=== PATIENT | female | born 1940 | race Caucasian/White ===

== ENCOUNTER → 2017-07-18 | Outpatient (CLI) | payer MEDICARE, OTHER ==
[~2017-07-18] MED LIST: ALDACTONE100 MG PO; ASPIRIN 81MG TA81 MG PO; BACTROBAN2% TP; BYSTOLIC10 MG PO; CALCIUM ACETAT667 MG PO; COZAAR 50 MG TA50 MG OR; KEFLEX 500MG.500 MG PO; LOSARTAN POTASS50 MG PO; MEDROL 4MG. DOSE4 MG PO; MULTIVITAMIN1 SGL PO; NATURE'S BLEND F1 MG PO; NEXIUM40 MG PO; PROTONIX 40MG T40 MG PO; RANITIDINE 150150 MG PO; RANITIDINE HCL150 MG PO; SPIRONOLACTONE50 MG PO; TRAMADOL50 M1 PO; VITAMIN D31000 IU PO; VOLTAREN100 GM TP
[2017-07-18 11:52] VITALS: BP 112/77
== END ==
LOC: COP 10:35
DX: M81.0 Age-related osteoporosis without current pathological fracture (principal); K21.9 Gastro-esophageal reflux disease without esophagitis
CPT/HCPCS: J0897